=== PATIENT | male | born 1950 | race Caucasian/White ===

== ENCOUNTER 2019-09-21 09:28 | Observation (INO) | payer MEDICARE, OTHER ==
[~2019-09-21] VITALS: Ht 172.7 cm; Wt 84.4 kg
[2019-09-21] MEDS ORDERED: PRILOSEC OTC20 MG PO (09:46)
[2019-09-21] MEDS ORDERED: CORICIDIN HBP1 EAC3 (09:48)
[2019-09-21] MEDS ORDERED: LIPITOR40 MG PO (09:48)
[2019-09-21] MEDS ORDERED: ASPIR 8181 MG PO (09:53)
--- NOTE | 2019-09-21 11:50 | NUR ---
PT ARRIVES TO CCU FROM ER VIA GURNEY. PT IS ALERT AND ORIENTED X4. PT DENIES PAIN, NAUSEA, AND SOB AT THIS TIME. PT IS ABLE TO STAND AND PIVOT FROM GURNEY TO THE BED, ELIZABETH ACTIVITY WELL.
--- NOTE | 2019-09-21 12:16 | NUR ---
IV SITE IS INTACT, NO REDNESS OR SWELLING NOTED, BLOOD RETURNS EASILY, PT DENIES PAIN AT SITE, FLUSHES EASILY. PT DENIES PAIN, NAUSEA, AND SOB. PT IS ALERT AND ORIENTED X4. ANSWERS QUESTIONS APPROPRIATLY.
--- NOTE | 2019-09-21 13:05 | NUR ---
LUNCH ARRIVED TO PT ROOM, PT IS AWAKE AND ALERT X4, ADULT DAUGHTER IS AT THE BEDSIDE. PT SITTING UP IN BED, CALL LIGHT IS WITHIN REACH.
--- NOTE | 2019-09-21 14:08 | NUR ---
PT ABLE TO EAT 100% OF HIS LUNCH, NOW IS SLEEPING.
--- NOTE | 2019-09-21 16:06 | NUR ---
PT UP AND AMBULATED TO BATHROOM WITH ONLY STAND BY ASSIST. PT DENIES DIZZYNESS. ABLE TO ELIZABETH ACTIVITY WELL. PT REMAINS ALER AND ORIENTED X4. IV SITE IS INTACT, NO REDNESS OR SWELLING NOTED, FLUIDS INFUSE EASILY.
--- NOTE | 2019-09-21 16:50 | NUR ---
PT BACK TO BED FROM THE BATHROOM, DENIES AND SOB, NAUSEA, AND LIGHTHEADEDNESS. PT AMBULATES INDEPENDENTLY WITH STAND BY ASSIST FOR CORDS.
--- NOTE | 2019-09-21 18:45 | NUR ---
PT ABLE TO EAT 100% OF HIS DINNER, DAUGHTER IS AT THE BEDSIDE. PT DENIES PAIN, NAUSEA, AND SOB. VITALS ARE WNL AT THIS TIME.
--- NOTE | 2019-09-21 20:00 | NUR ---
PT RESTING IN BED, DAUGHTER AT BEDSIDE. HR 60.
--- NOTE | 2019-09-21 20:45 | NUR ---
HAS NO C/O. AMB TO BR TO VOID, NO BM. ELIZABETH BEING UP WELL AND HR TO 72 WITH AMBULATION. GIVEN CUP FOR HEARING AIDS.
--- NOTE | 2019-09-21 22:09 | NUR ---
PT READY FOR BED. DAUGHTER TO STAY THE NIGHT. DAUGHTER STATES SHE GAVE PT HIS OWN EYE DROPS.
--- NOTE | 2019-09-22 00:25 | NUR ---
AWAKENED FOR ASSESSMENT, NO C/O.
--- NOTE | 2019-09-22 02:15 | NUR ---
SLEEPING. HR 49-52
--- NOTE | 2019-09-22 04:40 | NUR ---
AWAKE WHEN NEW BAG IV FLUID HUNG. NO C/O. HR 49-54.
--- NOTE | 2019-09-22 05:37 | NUR ---
AWAKENED FOR LABS. NO C/O. AMB TO BR TO VOID, ATTEMPTED TO HAVE BM , NO RESULTS. HR 60'S WITH ACTIVITY.
--- NOTE | 2019-09-22 06:17 | NUR ---
HAS RESTED WELL THROUGH NIGHT. OCC DRY COUGH. DOES HAVE SOME SCATTERED WHEEZES. HR MAINLY RUNS LOW 50'S.
--- NOTE | 2019-09-22 07:19 | EKG ---
[facility] [id number] [facility] [place], [place] [address] Signed Normal sinus rhythm Normal ECG No previous ECGs available Confirmed by NIYAH FLORENTINO MD [id number] on 09/22/2019 7:18:52 AM Electronically Signed By: NIYAH FLORENTINO MD 09/22/19 0719 PATIENT NAME: YUNG SYKES Electrocardiogram DATE OF : 50 PHYSICIAN: NIYAH FLORENTINO MD REPORT #: [id number] REPORT IS CONFIDENTIAL AND NOT TO BE RELEASED WITHOUT AUTHORIZATION
--- NOTE | 2019-09-22 08:25 | NUR ---
HOB ELEVATED. TALKING TO FAMILY MEMBERS. DENIES PAIN. STATES HE IS FEELING BETTER THIS AM THAN HE WAS YESTERDAY. DR. FLORENTINO IN TO SEE PT THIS AM. INFORMS HIM OF FURTHER TESTS THAT WILL BE DONE TODAY.
--- NOTE | 2019-09-22 09:28 | NUR ---
SITTING UP IN BED TO EAT BREAKFAST. DENIES NEEDS AT THIS TIME. CALL LIGHT IN REACH BR UP X2.
--- NOTE | 2019-09-22 10:56 | NUR ---
UP TO BATHROOM. CONTINENT OF URINE. AMBULATES IN HALLWAY C STANDBY ASSIST X1 APPROXIMATELY 300 FEET. REMAINS ALERT ET ORIENTED. GAIT STEADY. DENIES LIGHTHEADED ET DIZZINESS. FAMILY REMAINS AT BEDSIDE. TREMAYNE OTHER NEEDS AT THIS TIME. CALL LIGHT IN REACH, SR UP X2.
--- NOTE | 2019-09-22 12:00 | NUR ---
AMBULATES IN ROOM TO BR C STANDBY ASSIST. BRUSHES TEETH ET URINATES. GAIT STEADY C AMBULATION. IV SITE REMAINS WNL. VS OBTAINED ET ASSESSMENT COMPLETED.REMAINS ALERT ET ORIENTED X4.
--- NOTE | 2019-09-22 12:07 | NUR ---
DR. FLORENTINO IN TO SPEAK C PT ET DAUGHTER. INFORMS OF NEED TO REST ET NEED TO DC LISINOPRIL TO PREVENT POSSIBLE ALLERGY TO MEDICATION. ALSO INSTRUCTED TO MONITOR BLOOD PRESSURE DAILY. OK TO HAVE HIGHER BP AT THIS TIME. RETURN IF FURTHER ISSUES. ALSO INFORMED OF POSSIBLE NEED FOR PACEMAKER.
[2019-09-22] MEDS ORDERED: LISINOPRIL10 MG PO (12:38)
[2019-09-22] MEDS ORDERED: DORZOLAMIDE 2%10 ML OD (12:42)
[2019-09-22] MEDS ORDERED: VITAMIN B-12500 MCG PO (12:42)
[2019-09-22] MEDS ORDERED: SYSTANE COMPLET10 ML OU (12:43)
--- NOTE | 2019-09-22 12:44 | NUR ---
MED REC COMPLETE
--- NOTE | 2019-09-22 14:18 | NUR ---
PT DRESSED, SITTING ON SIDE OF BED WITH HIS DAUGHTER AT . PT IS TO BE DC'D LATER TODAY. HE IS FROM [place] VISITING FAMILY, AND IS LEAVING AT END OF WEEK. HE IS ALERT, ORIENTED AND WANTING TO CONTINUE TO VISIT WITH FAMILY. PT REQUESTED PRAYER, WILL FOLLOW NEEDED
== END 2019-09-22 14:10 | disposition home or self-care (01) ==
LOC: ED 09:28 → CCU 09:29
PROVIDERS: ADMIT Internal Medicine
DX: R00.1 Bradycardia, unspecified (principal); J40 Bronchitis, not specified as acute or chronic; I25.10 Atherosclerotic heart disease of native coronary artery without angina pectoris; Z95.5 Presence of coronary angioplasty implant and graft; Z23 Encounter for immunization; Z87.891 Personal history of nicotine dependence; Z88.8 Allergy status to other drugs, medicaments and biological substances; Z79.899 Other long term (current) drug therapy; Z79.82 Long term (current) use of aspirin
CPT/HCPCS: 36415; 71045; 80048; 80053; 83735; 84484; 85025; 90662; 93005; 93010; 93880; 96360; 99285-25; G0008; G0378; J7030